=== PATIENT | male | born 1995 | race Caucasian/White ===

== ENCOUNTER 2021-02-23 09:29 | Emergency (ER) | payer OTHER, SELFPAY ==
--- NOTE | ~2021-02-23 | XR_ITS ---
EXAMINATION: XR chest 2V DATE: 02/23/2021 10:07 INDICATION: Midsternal chest pain TECHNIQUE: PA and lateral views of the chest are obtained. COMPARISON: 08/05/2016 FINDINGS: The lungs are free of acute opacities. There is no pleural effusion or pneumothorax. The ca rdiomediastinal silhouette is normal. The visualized bones and soft tissues are unremarkable. IMPRESSION: 1. No acute cardiopulmonary abnormality. Reviewed, dictated and finalized at location A.
[2021-02-23 09:34] VITALS: BP 148/77; PULSE 74; RESP 12; TEMP 36.4; O2SAT 100
[2021-02-23 09:58] VITALS: PULSE 66; O2SAT 99
--- NOTE | 2021-02-23 09:58 | ECG_ITS ---
Measurements Intervals [place] Rate: 71 P: 69 MA: 143 QRS: 77 QRSD: 98 T: 52 QT: 339 QTc: 370 Interpretive Statements SINUS RHYTHM WITH SINUS ARRHYTHMIA INCOMPLETE RIGHT BUNDLE BRANCH BLOCK BASELINE ARTIFACT- I, II, AVL, AVF BORDERLINE ECG Electronically Signed On 02-23-2021 10:54:10 CDT by Trace Burgess D.O.
[2021-02-23 10:11] LABS: Basophils Absolute Auto 0.1 K/mm3 (0.0-0.1); Basophils Percent Auto 0.8 % (0.2-1.2); Eosinophils Absolute Auto 0.3 K/mm3 (0-0.3); Eosinophils Percent Auto 3.2 % (0-4.4); Hematocrit 48.7 % (42.0-52.0); Hemoglobin 16.2 g/dL (14.0-18.0); Immature Granulocyte Absolute 0.06 K/mm3 (0.00-0.031); Immature Granulocyte Percent A 0.7 % (0-0.5); Lymphocytes Absolute Auto 3.05 K/mm3 (0.9-3.2); Lymphocytes Percent Auto 33.7 % (18.3-44.2); Mean Corpuscular HGB Conc 33.3 g/dl (32-36); Mean Corpuscular Hemoglobin 30.7 pg (26-34); Mean Corpuscular Volume 92.4 fl (80-100); Mean Platelet Volume 10.7 fl (7.4-10.4); Monocytes Absolute Auto 0.8 K/mm3 (0.1-0.6); Monocytes Percent Auto 8.4 % (2.6-8.5); Neutrophils Absolute Auto 4.8 K/mm3 (1.3-6.7); Neutrophils Percent Auto 53.2 % (45.5-73.1); Platelet Count Result 237 k/mm3 (150-375); Red Blood Count 5.27 M/mm3 (4.6-6.20); Red Cell Distribution Width 13.4 % (11.5-14.5); White Blood Count 9.1 K/mm3 (4.5-10.0)
[2021-02-23] MEDS: KETOROLAC 30 MG/ML VIAL (*BKC) IV PUSH (10:13)
[2021-02-23 10:21] LABS: Anion Gap 7 mmol/L (8-16); Blood Urea Nitrogen 9 mg/dL (9-20); Calcium 9.3 mg/dL (8.4-10.2); Carbon Dioxide 30 mmol/L (22-30); Chloride 102 mmol/L (98-107); Estimated CRCL calculation 139 ml/min; Estimated Glomerular Filt Rate > 60; Glucose 96 mg/dL (65-110); Potassium 4.4 mmol/L (3.4-5.0); Sodium 139 mmol/L (137-145)
[2021-02-23 10:23] LABS: INR 0.8; Partial Thromboplastin Time 24.8 SECONDS (22.3-36.8); Prothrombin Time 10.9 Seconds (11.1-14.7)
[2021-02-23 10:26] LABS: D Dimer 0.37 ug/mL (<0.48)
[2021-02-23 10:34] LABS: Troponin I < 0.012 ng/mL (0.000-0.034)
--- NOTE | 2021-02-23 11:25 | ED.CHESTPAIN ---
HPI - Chest Pain General Chief Complaint: Chest Pain Stated Complaint: Real bad chest pain, hard to walk Time Seen by Provider: 02/23/21 09:33 History of Present Illness HPI narrative: Patient is a 25-year-old male who presents ER with right-sided chest pain and back pain. Ongoing for 2 days. Worse with any type of movement and with walking. Occasionally has pain with deep breath. Has tried no pain medications. He also believes it hurts when he eats. No fevers or chills or sweats. Reports mother had an [place] in her early 30s. No personal history of cardiac disease. Related Data Allergies Allergy/AdvReac Type Severity Reaction Status Date / Time No Known Allergies Allergy Verified 02/23/21 09:37 Review of Systems Review of Systems: All systems reviewed & are unremarkable except as noted in HPI and below Constitutional: Constitutional: Denies chills, Denies fever(s) and Denies weakness ENT: Denies nasal congestion and Denies sore throat Cardiovascular: Cardiovascular: Reports chest pain, Denies rapid heart rate and Denies radiating jaw, neck or arm pain Respiratory: Respiratory: Denies cough, Reports dyspnea and Denies wheezing Gastrointestinal: Gastrointestinal: Denies abdominal pain, Denies nausea and Denies vomiting Musculoskeletal: Musculoskeletal: Reports back pain, Denies arthralgias, Denies joint swelling and Denies muscle cramps PMFSH Past Medical History Medical History (Updated 02/23/21 @ 11:32 by Burt Damon MD) Healthy adult male Surgical History Surgical History (Updated 02/23/21 @ 11:27 by Burt Damon MD) No history of previous surgery Social History Social History (Updated 02/23/21 @ 11:27 by Burt Damon MD) Smoking status: Current every day smoker Exam Narrative: GENERAL: Well-appearing, well-nourished, and in no acute distress. HEAD: Normocephalic, atraumatic. EYES: PERRL and EOMI. CHEST: Clear to auscultation. No respiratory distress. HEART: Regular rate and rhythm. Normal peripheral pulses. ABDOMEN: Soft, mild upper abdominal tenderness without guarding, nondistended. Back: Mild diffuse tenderness of the paraspinal musculature more specifically paraspinal muscles between the scapula and spine on the right. EXTREMITIES: Normal range of motion. No edema. SKIN: Warm, dry, no rash. NEURO: Alert and oriented x3. PSYCH: Normal mood and affect. Course Course Emergency Course: Pain resolved with Toradol. Informed results. Discharge home. Vital Signs Vital signs: Vital Signs Temperature 97.6 F 02/23/21 09:34 Pulse Rate 74 02/23/21 09:34 Respiratory Rate 12 02/23/21 09:34 Blood Pressure 148/77 H 02/23/21 09:34 Pulse Oximetry 100 02/23/21 09:34 Temperature 97.6 F 02/23/21 09:34 Pulse Rate 66 02/23/21 09:58 Respiratory Rate 12 02/23/21 09:34 Blood Pressure 148/77 H 02/23/21 09:34 Pulse Oximetry 99 02/23/21 09:58 MDM - Chest Pain Lab Data Result diagrams: 02/23/21 10:05 02/23/21 10:05 Labs: Lab Results 02/23/21 02/23/21 02/23/21 Range/Units 10:05 10:05 10:05 WBC 9.1 (4.5-10.0) K/mm3 RBC 5.27 (4.6-6.20) M/mm3 Hgb 16.2 (14.0-18.0) g/dL Hct 48.7 (42.0-52.0) % MCV 92.4 (80-100) fl MCH 30.7 (26-34) pg MCHC 33.3 (32-36) g/dl RDW 13.4 (11.5-14.5) % Plt Count 237 (150-375) k/mm3 MPV 10.7 H (7.4-10.4) fl Immature Gran % (Auto) 0.7 H (0-0.5) % Neut % (Auto) 53.2 (45.5-73.1) % Lymph % (Auto) 33.7 (18.3-44.2) % [place] % (Auto) 8.4 (2.6-8.5) % Eos % (Auto) 3.2 (0-4.4) % Baso % (Auto) 0.8 (0.2-1.2) % Lymph # (Auto) 3.05 (0.9-3.2) K/mm3 [place] # (Auto) 0.8 H (0.1-0.6) K/mm3 Eos # (Auto) 0.3 (0-0.3) K/mm3 Baso # (Auto) 0.1 (0.0-0.1) K/mm3 Abs Immat Gran (auto) 0.06 H (0.00-0.031) K/mm3 Absolute Neuts (auto) 4.8 (1.3-6.7) K/mm3 Absolute Nucleated RBC 0.0 (0.0-0.012) K/mm3 Nucleated
[2021-02-23 11:32] LABS: Alanine Aminotransferase 33 U/L (4-50); Alkaline Phosphatase 74 U/L (38-126); Aspartate Amino Transferase 56 U/L (17-59); Bilirubin,Total 0.4 mg/dL (0.2-1.3); Lipase 56 U/L (23-300)
[2021-02-23 12:48] VITALS: BP 130/87; PULSE 80; RESP 16; O2SAT 98
== END 2021-02-23 12:49 | disposition home or self-care (01) ==
PROVIDERS: Emergency Provider Emergency Medicine
DX: R07.89 Other chest pain (principal); M54.6 Pain in thoracic spine; F17.200 Nicotine dependence, unspecified, uncomplicated; I45.10 Unspecified right bundle-branch block
CPT/HCPCS: 36415; 71046; 80048; 80076; 83690; 84484; 85025; 85380; 85610; 85730; 93005; 96374; 99284; J1885

== ENCOUNTER 2023-12-20 11:21 | Emergency (ER) | payer OTHER, SELFPAY ==
[2023-12-20 11:37] VITALS: BP 174/96; PULSE 70; RESP 16; TEMP 36.6; O2SAT 100
--- NOTE | 2023-12-20 11:37 | ED.DENTAL ---
HPI - Dental/Oral General Chief complaint: Dental/Oral Stated complaint: left front tooth pain Time Seen by Provider: 12/20/23 11:50 Mode of arrival: ambulatory Limitations: no limitations History of Present Illness HPI Narrative: 27-year-old male presents with concern for upper frontal dental pain and swelling. Reports he has had a chipped tooth there for some time. Reports the swelling started yesterday. He denies fever, difficulty swallowing, he has taken [employer] Complaint: tooth pain Related Data Allergies Allergy/AdvReac Type Severity Reaction Status Date / Time No Known Allergies Allergy Verified 02/23/21 09:37 Review of Systems Review of Systems: CONSTITUTIONAL: Denies malaise, chills, sweats, or fever. EYES: Denies visual changes ENT: Denies rhinorrhea, congestion, sinus pain, otalgia or sore throat. Reports upper frontal dental pain CARDIOVASCULAR: Denies chest pain, palpitations RESPIRATORY: Denies cough or dyspnea. SKIN: Denies rash or itching. MUSCULOSKELETAL: Denies myalgia. NEUROLOGIC: Denies numbness, weakness, or headache. All systems reviewed & are unremarkable except as noted in HPI and below PMFSH Past Medical History Medical History (Updated 12/20/23 @ 11:52 by Maya Salinas NP) Healthy adult male Surgical History Surgical History (Updated 02/23/21 @ 11:27 by Burt Damon MD) No history of previous surgery Social History Social History (Updated 02/23/21 @ 11:27 by Burt Damon MD) Smoking status: Current every day smoker Comments At time of signature, agree with nursing past medical, surgical, social and family history. There is no relevant family history pertinent to the presenting complaint Exam Narrative: GENERAL: Well-appearing, well-nourished, and in no acute distress. HEAD: Normocephalic, atraumatic. EYES: PERRLA, sclera clear ENT: Nares clear, turbinates pink, no rhinorrhea or epistaxis. Mucous membranes moist. TM pearly hammond with sharp light reflex bilaterally; no tragal tenderness. Oropharynx without erythema or lesions. Tonsils not enlarged and without exudate. Broken teeth, caries, no facial swelling noted NECK: Supple. No lymphadenopathy. CHEST: No respiratory distress. Speaks in full sentences. HEART: Regular rate and rhythm. SKIN: Warm, dry, no visible rash. NEURO: Alert and oriented x3. PSYCH: Normal mood and affect Course Course Emergency Course: Patient is aware of diagnosis, understands and agrees to treatment plan. Anticipatory guidance given. Patient agrees to follow-up as directed and is aware of reasons to seek care at the emergency department. Portions of this record may have been created with voice recognition software Level of Care: [facility] Visit Vital Signs Vital signs: Reviewed. MDM - Dental/Oral MDM Narrative Medical decision making narrative: I evaluated this in the [facility]. History is obtained from patient who is an independent historian and physical exam was performed.? Available medical records were reviewed. ? Exam findings and relevant testing show no acute concerns or changes; patient is non-toxic appearing and is in no distress. Patients pain and complaint coupled with physical findings are consistant with dentalgia. There are no focal signs of space occupying lesions that are compromising to the airway; no dysphagia, odynophagia, dysphonia, or dyspnea. No uvular deviation or soft palate edema. Patient is non-toxic appearing. The floor of the mouth is soft with no signs of Rip's Angina; no induration below mandible, no neck pain. Patient is without trismus or drooling and able to swallow secretions. Patient is felt appropriate for discharge home with dental follow up. ? Differential diagnosis and treatment plan were discussed with the patient. Patient agrees with discussion and after shared medical decision making agrees with plan of care. All questions were answered to the patient's satisfac
== END 2023-12-20 11:59 | disposition home or self-care (01) ==
PROVIDERS: Emergency Provider Nurse Practitioner
DX: K08.89 Other specified disorders of teeth and supporting structures (principal); F17.200 Nicotine dependence, unspecified, uncomplicated
CPT/HCPCS: 99213; G0463

== ENCOUNTER 2023-12-21 06:02 | Emergency (ER) | payer OTHER, SELFPAY ==
--- NOTE | ~2023-12-21 | CT_ITS ---
CT Facial Bones Clinical Indication: Left facial swelling Technique: Following intravenous administration of 75 cc of Omnipaque 350 contrast material, axial sc ans were obtained through the facial bones followed by coronal and sagittal reconstructions. Dose red uction technique was used on this scan by utilizing automated exposure control and iterative reconstr uction technique. The dose-length product (DLP) was 353.02 mGy-cm. Findings: No fractures are identified. Retention cyst or polyp present in the left maxillary sinus. T he remaining visualized paranasal sinuses are clear. Intraorbital soft tissues appear normal. There i s soft tissue swelling of the superficial soft tissues overlying the left maxillary sinus. No abscess evident. Impression: Soft tissue swelling in the soft tissues overlying the left maxillary sinus. Correlate for cellulitis or other reactive edema. No abscess or mass lesion evident. No intraorbital abnormality seen. Reviewed, dictated and finalized at [facility]. Impression: Soft tissue swelling in the soft tissues overlying the left maxillary sinus. Co rrelate for cellulitis or other reactive edema. No abscess or mass lesion evide nt. No intraorbital abnormality seen.
[2023-12-21 06:07] VITALS: BP 159/98; PULSE 89; RESP 16; TEMP 36.9; O2SAT 98
--- NOTE | 2023-12-21 06:41 | PC.NURSE ---
Pt was seen at urgent care 12/20/23 and was prescribed Augmentin and Naproxen. Pt took 1st dose of that medication. Spouse wants to question if patient is allergic to augment as his face is now puffier than it was before and it got that way after he did take his medications.
--- NOTE | 2023-12-21 06:52 | ED.DENTAL ---
HPI - Dental/Oral General Chief complaint: Dental/Oral <Rosie Carmichael MD - Last Filed: 12/21/23 06:57> Stated complaint: Face Swollen, Eye Swollen Dental issues <Rosie Carmichael MD - Last Filed: 12/21/23 06:57> Time Seen by Provider: 12/21/23 06:54 <Rosie Carmichael MD - Last Filed: 12/21/23 06:57> History of Present Illness HPI Narrative: Patient was seen at the clinic yesterday for broken tooth and started on Augmentin, this morning he woke up and his left face was more swollen, and he is unable to open his eye or move his eyes without pain. <Rosie Carmichael MD - Last Filed: 12/21/23 06:57> Related Data Allergies/adverse reactions: Allergies Allergy/AdvReac Type Severity Reaction Status Date / Time No Known Allergies Allergy Verified 12/20/23 12:02 <Rosie Carmichael MD - Last Filed: 12/21/23 06:57> Review of Systems Review of Systems: All systems reviewed & are unremarkable except as noted in HPI and below <Rosie Carmichael MD - Last Filed: 12/21/23 06:57> [facility] Past Medical History Medical History: Medical History (Updated 12/21/23 @ 06:56 by Rosie Carmichael MD) Healthy adult male <Rosie Carmichael MD - Last Filed: 12/21/23 06:57> Surgical History Surgical History: Surgical History (Updated 02/23/21 @ 11:27 by Burt Damon MD) No history of previous surgery <Rosie Carmichael MD - Last Filed: 12/21/23 06:57> Social History Social History: Social History (Updated 02/23/21 @ 11:27 by Burt Damon MD) Smoking status: Current every day smoker <Rosie Carmichael MD - Last Filed: 12/21/23 06:57> Exam Narrative: EXAMINATION OF ORGAN SYSTEMS/BODY AREAS: Constitutional: Vital signs per nursing GENERAL: Appears uncomfortable HEAD: atraumatic EYES: patient unable to move his eyes without pain; conjunctiva normal ENT: Swelling to L face LUNGS: Nonlabored breathing. HEART: [Regular rate and rhythm] ABD: Nondistended EXT: Normal range of motion NEURO: [Alert and oriented x 3. No gross focal sensory or strength deficits.] PSYCH: Normal affect <Rosie Carmichael MD - Last Filed: 12/21/23 06:57> Course Course Emergency Course: JADIEL: Received signout, pending lab work and imaging. Patient getting antibiotics here, already on augmentin at home. Facial CT shows soft tissue swelling in the soft tissues overlying the left maxillary sinus, correlate for cellulitis or other reactive edema. No abscess or mass lesion. patient is already on Augmentin which is the appropriate antibiotic in this case. Advised to continue taking his antibiotic which was prescribed yesterday. He should follow-up closely with his primary care doctor and dentist. The results of pertinent diagnostic studies and exam findings were discussed. The patient?s provisional diagnosis and plan of care were discussed with the patient and present family. The patient and/or present family expressed understanding of the diagnosis and plan. The nurse was instructed to provide written instructions and appropriate follow-up information. The patient understands their need and responsibility to obtain additional follow-up as instructed. The risks of medications administered and prescribed were discussed with the patient and family present. <Estefania Cai MD - Last Filed: 12/21/23 09:31> Vital Signs Vital signs: Vital Signs Temperature 98.5 F 12/21/23 06:07 Pulse Rate 89 12/21/23 06:07 Respiratory Rate 16 12/21/23 06:07 Blood Pressure 159/98 H 12/21/23 06:07 Pulse Oximetry 98 12/21/23 06:07 Oxygen Delivery Room Air 12/21/23 06:07 Temperature 98.5 F 12/21/23 06:07 Pulse Rate 89 12/21/23 06:07 Respiratory Rate 16 12/21/23 06:07 Blood Pressure 141/67 H 12/21/23 08:31 Pulse Oximetry 98 12/21/23 08:31 Oxygen Delivery Room Air 12/21/23 06:07 <Rosie Carmichael MD - Last Filed: 12/21/23 06:57> Vital Signs Temperature 98.5 F 12/21/23 06:07 Pulse Rate 89 07
[2023-12-21 07:01] VITALS: BP 166/96; O2SAT 96
[2023-12-21] MEDS: KETOROLAC 15 MG/ML VIAL (*BKC) IV PUSH (07:10)
[2023-12-21] MEDS: AMPICILLIN SULB 3 GM/NS 100 ML 3 GM/100 ML VIAL IVPB (07:11)
[2023-12-21 07:16] VITALS: BP 152/92; O2SAT 97
[2023-12-21 07:22] LABS: Basophils Percent Auto 0.3 % (0.2-1.2); Eosinophils Percent Auto 0.2 % (0-4.4); Hematocrit 50.9 % (42.0-52.0); Hemoglobin 17.1 g/dL (14.0-18.0); Immature Granulocyte Absolute 0.04 K/mm3 (0.00-0.031); Immature Granulocyte Percent A 0.3 % (0-0.5); Lymphocytes Absolute Auto 1.21 K/mm3 (0.9-3.2); Lymphocytes Percent Auto 9.7 % (18.3-44.2); Mean Corpuscular HGB Conc 33.6 g/dl (32-36); Mean Corpuscular Hemoglobin 30.3 pg (26-34); Mean Corpuscular Volume 90.1 fl (80-100); Mean Platelet Volume 10.2 fl (7.4-10.4); Monocytes Percent Auto 8.1 % (2.6-8.5); Neutrophils Absolute Auto 10.1 K/mm3 (1.3-6.7); Neutrophils Percent Auto 81.4 % (45.5-73.1); Platelet Count Result 243 k/mm3 (150-375); Red Blood Count 5.65 M/mm3 (4.6-6.20); Red Cell Distribution Width 13.3 % (11.5-14.5); White Blood Count 12.5 K/mm3 (4.5-10.0)
[2023-12-21 07:31] VITALS: BP 147/97; O2SAT 95
[2023-12-21 07:32] LABS: Alanine Aminotransferase 17 U/L (6-50); Albumin Level 4.7 g/dL (3.5-5.1); Alkaline Phosphatase 104 U/L (38-126); Anion Gap 8 mmol/L (4-12); Aspartate Amino Transferase 33 U/L (17-59); Bilirubin,Total 0.8 mg/dL (0.2-1.3); Blood Urea Nitrogen 8 mg/dL (9-20); Calcium 9.4 mg/dL (8.4-10.2); Carbon Dioxide 30 mmol/L (22-30); Chloride 101 mmol/L (98-107); Estimated CRCL calculation 147 ml/min; Estimated Glomerular Filt Rate > 60; Glucose 116 mg/dL (65-110); Sodium 139 mmol/L (137-145)
[2023-12-21 08:31] VITALS: BP 141/67; O2SAT 98
[2023-12-21 09:41] VITALS: BP 141/84; PULSE 88; RESP 16; TEMP 36.9; O2SAT 98
== END 2023-12-21 09:35 | disposition home or self-care (01) ==
PROVIDERS: Emergency Provider Emergency Medicine
DX: R22.0 Localized swelling, mass and lump, head (principal)
CPT/HCPCS: 36415; 70487; 80053; 85025; 87040; 96365; 96375; 99284; J0295; J1885; Q9967